=== PATIENT | male | born 1960 | race Caucasian/White ===

== ENCOUNTER 2019-09-21 07:56 | Inpatient (IN) | payer OTHER ==
[~2019-09-21] VITALS: Ht 175.3 cm; Wt 72.6 kg
[2019-09-21 08:08] VITALS: BP 152/89
--- NOTE | 2019-09-21 08:11 | NUR ---
ED Nurse Note: Pt from home walked in due to mid CP since last night. Denies N/V/D. no reports of SOB. States his CP is pressure like and like there is someone sitting on his chest. AAO x4 and ambulatory with no respiratory distress upon arrival.
[2019-09-21] MEDS: Nitroglycerin Subl 0.4mg tab SL PRN ×3 (08:14→08:32)
[2019-09-21] MEDS ORDERED: Aspirin Baby 81mg ORAL ONE (08:15)
[2019-09-21 08:21] LABS: BASOPHILS % (AUTO) 1.7 % (0.0-2.0); EOSINOPHILS % (AUTO) 1.1 % (0.0-3.0); HEMATOCRIT 38.1 % (42.0-52.0); HEMOGLOBIN 14.2 G/DL (14.2-18.0); LYMPHOCYTES % (AUTO) 10.8 % (20.0-45.0); MEAN CORPUSCULAR VOLUME 92 FL (80-99); MONOCYTES % (AUTO) 9.8 % (1.0-10.0); NEUTROPHILS % (AUTO) 76.6 % (45.0-75.0); PLATELET COUNT 203 K/UL (150-450); RED BLOOD COUNT 4.13 M/UL (4.70-6.10); RED CELL DISTRIBUTION WIDTH 10.2 % (11.6-14.8)
--- NOTE | 2019-09-21 08:23 | Emergency Room Report ---
History of Present Illness General Chief Complaint: Chest Pain Source: Patient Present Illness HPI Patient is a 58-year-old male past medical history of hyperlipidemia and anxiety who presents to the ER complaining of chest pain. Patient complains of substernal chest pressure like a squeezing type sensation that began last night. Patient states that it has been constant. He denies any alleviating or mitigating factors. He states that it is not worse on exertion. Patient complains of associated dizziness but denies any fever, shortness of breath, nausea, focal weakness or diaphoresis. Patient denies any lower extremity pain or edema. He denies any recent travel. 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 Patient is not on daily aspirin. Patient states that his primary care doctors in [place]. Allergies: Coded Allergies: No Known Allergies (Unverified , 09/21/19) COVID-19 Screening Contact w/high risk pt: No Recent Travel to affected area: No Experienced COVID-19 symptoms?: No Patient History Past Medical History: other - HLD, anxiety Past Surgical History: none Social History: Denies: smoking, alcohol use, drug use Nursing Documentation-[facility] Past Medical History: No History, Except For Hx Hypertension: Yes Review of Systems All Other Systems: negative except mentioned in HPI Physical Exam Vital Signs Date Time Temp Pulse Resp B/P (MAP) Pulse Ox O2 Delivery O2 Flow Rate FiO2 09/21/19 08:04 98.2 70 16 152/89 (110) 100 Room Air Sp02 EP Interpretation: reviewed, normal General Appearance: no apparent distress, alert, GCS 15, non-toxic Head: normocephalic, atraumatic Eyes: bilateral eye normal inspection, bilateral eye PERRL ENT: hearing grossly normal, normal pharynx, no angioedema, normal voice Neck: full range of motion, supple/symm/no masses Respiratory: chest non-tender, lungs clear, normal breath sounds, speaking full sentences Cardiovascular #1: regular rate, rhythm, no edema Gastrointestinal: normal bowel sounds, non tender, soft, non-distended, no guarding, no rebound Rectal: deferred Genitourinary: normal inspection, no CVA tenderness Musculoskeletal: back normal, normal range of motion, no calf tenderness, gait/ station normal, non-tender Neurologic: alert, motor strength/tone normal, oriented x3, sensory intact, responsive, speech normal Skin: no rash Lymphatic: no adenopathy Procedures Critical Care Time Critical Care Time Total critical care time: Approximately 35 minutes. Due to a high probability of clinically significant, life threatening deterioration, the patient required my highest level of preparedness to intervene emergently and I personally spent this critical care time directly and personally managing the patient. This critical care time included obtaining a history; examining the patient; pulse oximetry; ordering and review of studies; arranging urgent treatment with development of a management plan; evaluation of patient's response to treatment ; frequent reassessment; and, discussions with other providers.This critical care time was performed to assess and manage the high probability of imminent, life-threatening deterioration that could result in multi-organ failure. It was exclusive of separately billable procedures and treating other patients and teaching time. Please see MDM section and the rest of the note for further information on patient assessment and treatment. Medical Decision Making Diagnostic Impression: Primary Impression: NSTEMI (non-ST elevated myocardial infarction) Additional Impression: CHF (congestive heart failure) ER Course Patient presented with chest pain. Patient given aspirin and sublingual nitro which improved his pain. EKG demonstrates no ST elevation. Patient's troponin is 0.58. Patient started on heparin. Patient also has elevated BNP at 850. Patient will be admitted for further treatment and evaluation. Laboratory Tests Test 09/21/19 08:00 White Blood Count 10.0 K/UL (4.8-10.8) Red Blood Count 4.13 M/UL (4.70-6.10) L Hemoglobin 14.2 G/DL (14.2-18.0) Hematocrit 38.1 % (42.0-52.0) L Mean Corpuscular Volume 92 FL (80-99) Mean Corpuscular Hemoglobin 34.5 PG (27.0-31.0) H Mean Corpuscular Hemoglobin Concent 37.4 G/DL (32.0-36.0) H Red Cell Distribution Width 10.2 % (11.6-14.8) L Platelet Count 203 K/UL (150-450) Mean Platelet Volume 6.7 FL (6.5-10.1) Neutrophils (%) (Auto) 76.6 % (45.0-75.0) H Lymphocytes (%) (Auto) 10.8 % (20.0-45.0) L Monocytes (%) (Auto) 9.8 % (1.0-10.0) Eosinophils (%) (Auto) 1.1 % (0.0-3.0) Basophils (%) (Auto) 1.7 % (0.0-2.0) Sodium Level 134 MMOL/L (136-145) L Potassium Level 3.7 MMOL/L (3.5-5.1) Chloride Level 96 MMOL/L (98-107) L Carbon Dioxide Level 26 MMOL/L (21-32) Anion Gap 12 mmol/L (5-15) Blood Urea Nitrogen 11 mg/dL (7-18) Creatinine 1.0 MG/DL (0.55-1.30) Estimated Glomerular Filtration Rate > 60 mL/min (>60) Glucose Level 122 MG/DL (74-106) H Calcium Level 8.8 MG/DL (8.5-10.1) Magnesium Level 1.8 MG/DL (1.8-2.4) Total Bilirubin 1.1 MG/DL (0.2-1.0) H Direct Bilirubin 0.3 MG/DL (0.0-0.3) Aspartate Amino Transferase (AST) 26 U/L (15-37) Alanine Aminotransferase (ALT) 30 U/L (12-78) Alkaline Phosphatase 47 U/L (46-116) Troponin I 0.538 ng/mL (0.000-0.056) Pro-B-Type Natriuretic Peptide 841 pg/mL (0-125) H Total Protein 7.3 G/DL (6.4-8.2) Albumin 4.0 G/DL (3.4-5.0) Globulin 3.3 g/dL Albumin/Globulin Ratio 1.2 (1.0-2.7) EKG Diagnostic Results EKG Time: 07:55 EP Interpretation: MD omaira Rate: normal Rhythm: NSR ST Segments: no acute changes ASA given to the pt in ED: Yes Rhythm Strip Diag. Results Rhythm Strip Time: 08:22 EP Interpretation: yes - MD Omaira Rate: 66 Rhythm: NSR, no PVC's, no ectopy Chest X-Ray Diagnostic Results Chest X-Ray Diagnostic Results : Chest X-Ray Ordered: Yes # of Views/Limited/Complete: 1 View Indication: Chest Pain EP Interpretation: Yes Interpretation: no consolidation, no effusion, no pneumothorax, no acute cardiopulmonary disease Impression: No acute disease Electronically Signed by: Melissa Castano MD Last Vital Signs Date Time Temp Pulse Resp B/P (MAP) Pulse Ox O2 Delivery O2 Flow Rate FiO2 09/21/19 08:14 152/89 09/21/19 08:08 70 16 Room Air 09/21/19 08:08 98.3 100 Disposition: ADMITTED INPATIENT Condition: Critical Physician Consult: Dr. Shaffer at 9am. Melissa Castano M.D. September 21, 2019 08:23
[2019-09-21 08:33] LABS: ANION GAP 12 mmol/L (5-15); BLOOD UREA NITROGEN 11 mg/dL (7-18); CALCIUM 8.8 MG/DL (8.5-10.1); CARBON DIOXIDE 26 MMOL/L (21-32); CHLORIDE 96 MMOL/L (98-107); POTASSIUM 3.7 MMOL/L (3.5-5.1); SODIUM 134 MMOL/L (136-145)
[2019-09-21 08:44] LABS: ALANINE AMINOTRANSFERASE 30 U/L (12-78); ALBUMIN/GLOBULIN RATIO 1.2 (1.0-2.7); ALKALINE PHOSPHATASE 47 U/L (46-116); ASPARTATE AMINO TRANSFERASE 26 U/L (15-37); BILIRUBIN,TOTAL 1.1 MG/DL (0.2-1.0)
[2019-09-21] MEDS ORDERED: Heparin 25,000u/D5W 500ml 500 ML IV SCH ×2 (08:45→17:04)
[2019-09-21] MEDS ORDERED: Heparin 5000 units/ml inj IV ONE (08:45)
[2019-09-21 08:47] LABS: BILIRUBIN,DIRECT 0.3 MG/DL (0.0-0.3)
[2019-09-21 09:00] VITALS: BP 134/79
--- NOTE | 2019-09-21 09:30 | NUR ---
ED Nurse Note: Pt reports his CP pressure pain is lessen down to 3 or 4/10. Respirations are even and unlabored. Will continue to closely monitor pt.
--- NOTE | 2019-09-21 09:43 | NUR ---
ED Nurse Note: Called lab and spoken to Lori to ff up on PT and PTT lab.
[2019-09-21] MEDS ORDERED: XANAX0.25 MG ORAL (10:02)
[2019-09-21] MEDS ORDERED: LISINOPRIL20 MG ORAL (10:02)
[2019-09-21 10:35] LABS: INR 0.9 (0.9-1.1)
--- NOTE | 2019-09-21 11:03 | NUR ---
ED Nurse Note: REPORT GIVEN TO YEVGENIY TYLER
[2019-09-21 11:08] VITALS: BP 162/87
--- NOTE | 2019-09-21 11:08 | NUR ---
ED Nurse Note: Pt transferred to telemetry unit via gurney with his belongings. No acute distress.
--- NOTE | 2019-09-21 11:28 | NUR ---
NURSE NOTES: Pr
--- NOTE | 2019-09-21 11:29 | NUR ---
NURSE NOTES: pt arrived to the unit at 11:15 via hposp
--- NOTE | 2019-09-21 11:29 | NUR ---
NURSE NOTES: recvd pt at 11:15. Admitting Dx; Chest pain, admitting Dr Shaffer. Pt arrived via hospital bed, diagnostic cardiac sonographer placed on pt, showing SB-SR Hr jumps from high 50s to low 60. Pt c/o chest pressure 6/10. last trop 0.538, pt was started on heparin drip in ER and was brought up with bag still infusing. Pt is AOx4 and on room air with no sign of sob or resp distress. Vitals upon arrival 148/89, HR 60 100% on RA, temp 98.2. IV right hand 20g infusing heparin drip at 12 units/kg/hr. Belongings were signed
[2019-09-21 12:00] VITALS: BP 148/68
[2019-09-21] MEDS ORDERED: ALPRAZolam 0.5mg tab ORAL PRN (12:15)
[2019-09-21] MEDS: Lisinopril 10mg tab ORAL SCH (13:21)
[2019-09-21 16:00] VITALS: BP 115/73
[2019-09-21] MEDS ORDERED: Heparin 5000 units/ml inj IV SCH (17:03)
[2019-09-21] MEDS: Nitroglycerin 2% oint pkt TOPIC SCH (17:40)
[2019-09-21] MEDS: HYDROcodone/Acetamin 10/325 tab ORAL PRN ×2 (17:46→23:33)
--- NOTE | 2019-09-21 19:28 | NUR ---
HAND-OFF: Report given to Migue VUONG.
--- NOTE | 2019-09-21 19:30 | NUR ---
NURSE NOTES: Got report from Minna VUONG. Pt in stable condition. Denies any pain. Denies any n/v or SOB. No s/s of distress or discomfort noted. Pt resting in bed comfortably. Bed in low and locked position, call light within reach, bedside table within reach. Continue to monitor.
[2019-09-21 20:00] VITALS: BP 121/74
[2019-09-22] VITALS (7 sets, daily range): BP systolic 100–124; BP diastolic 61–76
[2019-09-22] MEDS ORDERED: Heparin 5000 units/ml inj IV ONE (00:30)
[2019-09-22] MEDS ORDERED: Heparin 25,000u/D5W 500ml 500 ML IV SCH ×4 (00:30→17:32)
[2019-09-22] MEDS: Nitroglycerin 2% oint pkt TOPIC SCH ×3 (06:00→18:15)
[2019-09-22 06:45] LABS: ANION GAP 10 mmol/L (5-15); BLOOD UREA NITROGEN 14 mg/dL (7-18); CALCIUM 8.5 MG/DL (8.5-10.1); CARBON DIOXIDE 26 MMOL/L (21-32); CHLORIDE 100 MMOL/L (98-107); CHOLESTEROL 173 MG/DL (< 200); CREATININE 1.2 MG/DL (0.55-1.30); HDL CHOLESTEROL 85 MG/DL (40-60); POTASSIUM 3.9 MMOL/L (3.5-5.1); SODIUM 136 MMOL/L (136-145); TRIGLYCERIDES 77 MG/DL (30-150)
--- NOTE | 2019-09-22 07:50 | NUR ---
HAND-OFF: Report given to Karina/Nneka UVONG.
--- NOTE | 2019-09-22 08:13 | NUR ---
NURSE NOTES: Received report from,YEVGENIY Camarena. Pt awake A/O x4. Sitting up comfortably in bed. Heparin drip infusing on right hand 20 G. No s/s of acute distress. No c/o chest pain. Bed low, side rails up x2, call light within reach. Will continue plan of care.
[2019-09-22] MEDS: Lisinopril 10mg tab ORAL SCH (09:00)
[2019-09-22] MEDS ORDERED: Aspirin Baby 81mg ORAL SCH (09:00)
--- NOTE | 2019-09-22 10:54 | NUR ---
CASE MANAGEMENT:REVIEW 58 YR OLD MALE WALKED IN TO ER CC: CHEST PAIN SI:NSTEMI. CHF 98.3 70 16 152/89 100% ON RA TROPONIN(+) 0.538 IS: HEPARIN GTT IV KCL PO K-DUR ASA PO CHEST XRAY : TO TELEMETRY PLAN: 2DEHO CONTINUOUS CARDIAC MONITORING
--- NOTE | 2019-09-22 11:22 | NUR ---
*-* INSURANCE *-* ALL CLINICALS AND REVIEWS HAVE BEEN FAXED TO: ZAIDA MAKI F: [phone]
--- NOTE | 2019-09-22 15:00 | General Progress Note ---
Assessment/Plan Problem List: (1) CHF (congestive heart failure) ICD Codes: I50.9 - Heart failure, unspecified SNOMED: 57330496 (2) NSTEMI (non-ST elevated myocardial infarction) ICD Codes: I21.4 - Non-ST elevation (NSTEMI) myocardial infarction SNOMED: 71410597 (3) Chest pain ICD Codes: R07.9 - Chest pain, unspecified SNOMED: 14143252 Status: stable Assessment/Plan: antiplt rx with aspirin heparin drip echo reviewed d/w cards- ?cath Subjective ROS Limited/Unobtainable: No Constitutional: Reports: no symptoms HEENT: Reports: no symptoms Cardiovascular: Reports: chest pain Respiratory: Reports: no symptoms Gastrointestinal/Abdominal: Reports: no symptoms Genitourinary: Reports: no symptoms Neurologic/Psychiatric: Reports: no symptoms Endocrine: Reports: no symptoms Hematologic/Lymphatic: Reports: no symptoms Allergies: Coded Allergies: No Known Allergies (Unverified , 09/21/19) All Systems: reviewed and negative except above Subjective chest pain resolved last night. remains on heparin drip. BP stable. troponin. trending down. Objective Last 24 Hour Vital Signs Date Time Temp Pulse Resp B/P (MAP) Pulse Ox O2 Delivery O2 Flow Rate FiO2 09/22/19 12:27 111/61 09/22/19 12:00 66 09/22/19 12:00 98.1 68 18 111/61 (78) 95 09/22/19 09:23 85 106/63 09/22/19 09:00 Room Air 09/22/19 09:00 106/63 09/22/19 08:00 77 09/22/19 08:00 98.2 85 20 106/63 (77) 98 09/22/19 06:00 100/69 09/22/19 04:00 97.2 83 17 100/69 (79) 98 09/22/19 04:00 78 09/22/19 00:03 97.9 09/22/19 00:00 97.7 91 18 124/76 (92) 98 09/22/19 00:00 77 09/21/19 23:48 Room Air 09/21/19 23:00 93 121/74 09/21/19 20:00 90 09/21/19 20:00 97.9 93 18 121/74 (90) 97 09/21/19 17:40 148/68 09/21/19 16:00 73 09/21/19 16:00 98.2 72 18 115/73 (87) 99 Intake and Output 09/21/19 09/22/19 19:00 07:00 Intake Total 480 ml Balance 480 ml Intake Oral 480 ml # Voids 3 2 Laboratory Tests 09/21/19 15:40: Activated Partial Thromboplast Time 44H 09/21/19 17:37: Troponin I 0.357H 09/21/19 23:25: Activated Partial Thromboplast Time 41H 09/22/19 04:00: Troponin I 0.226H, Sodium Level 136, Potassium Level 3.9, Chloride Level 100, Carbon Dioxide Level 26, Anion Gap 10, Blood Urea Nitrogen 14, Creatinine 1.2, Estimat Glomerular Filtration Rate > 60, Glucose Level 107H, Calcium Level 8.5, Magnesium Level 1.7L, Triglycerides Level 77, Cholesterol Level 173, LDL Cholesterol 71, HDL Cholesterol 85H, Cholesterol/HDL Ratio 2.0L, Thyroid Stimulating Hormone (TSH) 3.818H 09/22/19 07:30: Activated Partial Thromboplast Time > 150*H Height (Feet): 5 Height (Inches): 9.00 Weight (Pounds): 160 General Appearance: WD/WN, no apparent distress, alert Neck: supple Cardiovascular: normal rate, regular rhythm Respiratory/Chest: chest wall non-tender, lungs clear, normal breath sounds, no respiratory distress, no accessory muscle use Abdomen: normal bowel sounds, non tender, soft, no organomegaly, no mass Extremities: normal range of motion Edema: no edema noted Arm (L), no edema noted Arm (R), no edema noted Leg (L), no edema noted Leg (R), no edema noted Pedal (L), no edema noted Pedal (R), no edema noted Generalized Neurologic: project manager process development II-XII grossly normal, alert, oriented x 3, responsive Skin: normal pigmentation Lymphatic: normal anterior cervical (L), normal anterior cervical (R), normal posterior cervical (L), normal posterior cervical (R) Kevin Shaffer MD September 22, 2019 15:00
--- NOTE | 2019-09-22 16:07 | NUR ---
DISCHARGE/TRANSFER PATIENT WAS REFERRED TO [facility] FOR HIGHER LEVEL OF CARE BY DR MANZANO FAXED FACESHEET TO [facility] CONTACTED [facility] FOR TRANSFER AUTHORIZATION AND SPOKE WITH MICHELINE (T:[phone]) PER MICHELINE MOROCHO HAS TO GO TO THE [employer] [facility]ITE AND SUBMIT A "INPATIENT REQUEST FORM" INFORMATION PASSED ON TO BAILEE Addendum: 09/22/19 at 1614 by GEGE NICOLE LVN LVN CALLED [facility] AND SPOKE TO TAYLOR WHO CONFIRMED PATIENT HAS CLEARED FINANCIALS AND IS ON THE LIST TO TRANSFER. BAILEE WILL CALL [facility]SES ST[facility] WHEN BED IS AVAILABLE DR MANZANO HAS BEEN UPDATED [facility] T: [phone]
[2019-09-22] MEDS ORDERED: Heparin 5000 units/ml inj IV SCH (17:30)
--- NOTE | 2019-09-22 19:05 | NUR ---
HAND-OFF: Report given to Linda Bennett RN.
--- NOTE | 2019-09-22 20:00 | NUR ---
NURSE NOTES: Received report from,Karina VUONG. Pt awake A/O x4. Sitting up comfortably in bed. Heparin drip infusing on right hand 20 G at 18 units/kg/hour. Current PTT is 58 and titrated and dosed per pharmacy. No s/s of acute distress. No c/o chest pain, but slight headache. Bed low, side rails up x2, call light within reach. Pt is ambulatory with steady gait. Will continue plan of care and check on eta for [facility]. Ambulance company [facility] is delayed as they were [place] to [place] [facility] [place].
[2019-09-22] MEDS: HYDROcodone/Acetamin 10/325 tab ORAL PRN (21:05)
--- NOTE | 2019-09-22 23:29 | Consultation ---
DATE OF CONSULTATION: 09/21/2019 CARDIOLOGY CONSULTATION CONSULTING PHYSICIAN: Jesse Giles MD. HISTORY OF PRESENT ILLNESS: Patient is seen in the emergency room. He presented earlier with chest pain. He noted some heaviness that did not resolve. He has never had discomfort this significant. He has had twinges of some pain in the past, but never this prolonged or severe. His blood pressure was 111/61, heart rate 66, respiratory rate 18, afebrile. Troponin level was elevated at 0.538 and repeated 0.357 and an EKG reveals sinus rhythm with no acute changes. PAST MEDICAL HISTORY: Hypertension. FAMILY HISTORY: Negative for premature coronary disease. SOCIAL HISTORY: Negative for smoking, alcohol, or substance abuse. REVIEW OF SYSTEMS: Otherwise unremarkable. PHYSICAL EXAMINATION: VITAL SIGNS: Blood pressure 148/68, heart rate 62, respirations 18. LUNGS: Clear. CARDIAC: Regular rhythm and rate. Normal S1, S2 with no murmur, rub, or gallop. ABDOMEN: Soft. EXTREMITIES: No edema. An echocardiogram revealed normal ejection fraction with moderate mitral regurgitation. IMPRESSION: 1. Possible oil-SC-sjroyhhbp myocardial infarction. 2. Mitral regurgitation. 3. Acute diastolic congestive heart failure with elevated pro natriuretic peptide assay. PLAN: 1. Cardiac monitoring. 2. Anticoagulation with intravenous heparin. 3. Antiplatelet therapy with aspirin, beta-blockade. 4. He will likely need transfer for cardiac catheterization at a higher level of care. I have communicated with [facility] at this time. Jesse Giles M.D. : ERINN JOB#: [id number] CC:
--- NOTE | 2019-09-22 23:50 | NUR ---
NURSE NOTES: Pt is alert and oriented x4, stable for transfer to [facility] for cardiac cath.
--- NOTE | 2019-09-22 23:52 | NUR ---
NURSE NOTES: Transferred with [facility] to [facility] with ACLS protocol.
--- NOTE | 2019-09-23 05:45 | Progress Note ---
DATE: 09/22/2019 CARDIOLOGY PROGRESS NOTE SUBJECTIVE: The patient has not had any recurring chest pain since last evening. Troponin levels are decreasing. Monitor reveals sinus rhythm. Echocardiogram with no abnormality in wall motion or ejection fraction. PHYSICAL EXAMINATION: LUNGS: Clear. CARDIAC: Regular. ABDOMEN: Soft. EXTREMITIES: No edema. LABORATORY DATA: Labs reviewed. IMPRESSION: 1. Rrw-XY-prmdeudgc myocardial infarction. 2. History of hypertension. 3. Hypomagnesemia. 4. Acute diastolic congestive heart failure with elevated natriuretic peptide assay, now clinically compensated. 5. Favorable lipid panel. 6. Possible hypothyroid state. PLAN: 1. Transfer is being arranged to higher level of care for coronary angiography and assessment of coronary anatomy. Continue antiplatelet and anticoagulant therapy for now as well as beta-blockade. 2. Reassess thyroid function with full panel to follow. 3. IV magnesium replacement. 4. Discussed with the patient who agrees with plan of care. Jesse Giles M.D. DR: MEIR JOB#: [id number] CC:
--- NOTE | 2019-09-23 12:35 | NUR ---
*-* INSURANCE *-* ALL CLINICALS AND REVIEWS HAVE BEEN FAXED TO: [facility]AIDA MAKI F: [phone] Addendum: 09/23/19 at 1236 by LISBETH LOPEZ CM NO DISCHARGE SUMMARY AVAILABLE TO FAX
--- NOTE | 2019-09-23 13:17 | Diagnostic Imaging Report ---
Procedure: XRAY Chest 1v Reason for study: Chest pain Comparison films: None. FINDINGS: A single one view chest is obtained. Vascularity is normal. The lung ortiz are clear bilaterally. Cardiac and mediastinal silhouette are within normal limits. CP angles are sharp. The bony thorax appear unremarkable. IMPRESSION: NO ACUTE CARDIOPULMONARY DISEASE.
--- NOTE | 2019-09-26 11:19 | NUR ---
*-* NO DISCHARGE SUMMARY IN THE SYSTEM UNABLE TO FAX TO [employer]. *-*
--- NOTE | 2019-09-26 12:52 | Discharge Summary ---
Discharge Summary Discharge Summary _ dc summary dictated #[id number] Lauryn Cardenas NP September 26, 2019 12:52
--- NOTE | 2019-09-27 03:29 | Discharge Summary 2 SIG ---
DATE OF ADMISSION: 09/21/2019 DATE OF DISCHARGE: 09/23/2019 REASON FOR ADMISSION: 58-year-old male with past medical history of hyperlipidemia and anxiety presented to emergency department complaining of chest pain. Pain described as substernal, felt like squeezing since last night. Patient reported constant chest pain. Chest pain reported to be not worse with exertion. He reported associated dizziness. No fever. No chills. No shortness of breath. No focal weakness. No diaphoresis. Upon evaluation, vital signs were stable. Pulse oximetry was stable on room air. Laboratory workup revealed no leukocytosis. Stable hemoglobin , hematocrit and platelet count. Stable electrolytes and renal parameters. Troponin 0.538, pro BNP 841. EKG revealed sinus rhythm. No acute ischemic changes. Chest x-ray revealed no acute cardiopulmonary pathology. Patient admitted with chest pain, acute coronary syndrome. HOSPITAL COURSE: Patient admitted to telemetry floor. Patient started on IV heparin. Antiplatelet therapy with aspirin and beta-blockers provided. Serial troponin were closely monitored, trending down. Last troponin 0.226. Echocardiogram demonstrated preserved ejection fraction of 60%. No evidence of left ventricular hypertrophy. No evidence of wall motion abnormality. Moderate mitral regurgitation. Right ventricular systolic pressure of 14. Lipid panel was stable. Magnesium was replaced. Transfer was urgently arranged to higher level of care/[facility] via ACLS ambulance for further management and cardiac catheterization. FINAL DIAGNOSES: 1. NSTEMI. 2. Hypertension. 3. Acute diastolic congestive heart failure with elevated proBNP. 4. Hypomagnesemia. BAND AID MACHINE OPERATOR: Traffic Signal Supervisor Maintenance, Dr. Giles. DISCHARGE MEDICATIONS: List of medications were sent to the accepting facility. DISCHARGE DISPOSITION: Patient was transferred to [facility] via ACLS ambulance for further management and cardiac catheterization. Kevin Shaffer M.D. I have been assigned to dictate discharge summary on this account and I was not involved in the patient's management. Lauryn maddoxhtein), N.PCrystal DR: JOANNA JOB#: [id number] CC: SELWYN
--- NOTE | 2019-09-27 12:13 | NUR ---
*-* INSURANCE *-* DISCHARGE SUMMARY HAS BEEN FAXED TO: ZAIDA MAKI F: [phone]
== END 2019-09-23 | disposition short-term general hospital (02) | DRG 280 ==
LOC: EMR 08:40 → 2E 08:55 → EDBEDREQ 09:59
DX: I21.4 Non-ST elevation (NSTEMI) myocardial infarction (principal); I50.31 Acute diastolic (congestive) heart failure; E78.5 Hyperlipidemia, unspecified; I34.0 Nonrheumatic mitral (valve) insufficiency; I11.0 Hypertensive heart disease with heart failure; E83.42 Hypomagnesemia
CPT/HCPCS: 36415; 71045; 80048; 80053; 80061; 82248; 83735; 83880; 84443; 84484; 85025; 85610; 85730; 93005; 93306; 96365; 96375; 99291